=== PATIENT | male | born 1950 | race Caucasian/White ===

== ENCOUNTER → 2019-10-30 11:56 | Outpatient (CLI) | payer MEDICARE, OTHER, SELFPAY ==
[2019-10-31 21:09] LABS: COVID19 Sendout Not Detected (Not Detect)
== END ==
PROVIDERS: Visit Provider Physician Assistant
DX: Z11.59 Encounter for screening for other viral diseases (principal)
CPT/HCPCS: 87635

== ENCOUNTER 2019-11-01 06:03 | Day surgery (SDC) | payer MEDICARE, OTHER, SELFPAY ==
[2019-10-23 13:50] VITALS: BMI 19.5
[2019-11-01] VITALS (23 sets, daily range): BP systolic 100–212; BP diastolic 69–155; PULSE 63–90; RESP 12–21; TEMP 35.9–37.1; O2SAT 91–97; BMI 18.8
--- NOTE | 2019-11-01 | DI.RAD.S_ITS ---
PROCEDURE: XR HIP W PEL IF DONE RT 2V INDICATIONS: OR RIGHT HIP TECHNIQUE: AP pelvis and lateral view of the right hip acquired. COMPARISON: [facility] [place], [place], XR PELVIS WITH BILATERAL LATERAL HIPS, 09/03/2019, 15:35. FINDINGS: Bones: Patient is status post right hip arthroplasty, with hardware components in expected positions. The hip joint appears congruent. The visualized bony structures appear intact. Note is made of prior left hip arthroplasty. Soft tissues: Overlying postoperative changes are noted. No suspicious soft tissue densities. IMPRESSION: Right hip arthroplasty with prosthesis in expected alignment. Dictated by: Maryjo Oneal M.D. on 11/01/2019 at 11:02 Approved by: Maryjo Oneal M.D. on 11/01/2019 at 11:03
--- NOTE | 2019-11-01 | DI.RAD.S_ITS ---
PROCEDURE: XR HIP W PEL IF DONE RT 2V INDICATIONS: POST-OP RIGHT JOSSY TECHNIQUE: AP pelvis with lateral view(s) of the right hip(s). COMPARISON: [facility], , XR HIP W PEL IF DONE RT 2V, 11/01/2019, 10:02. FINDINGS: Bones: Expected postoperative appearance of right hip arthroplasty. There is expected postoperative alignment. No fracture. Overlying soft tissue changes and gas. Lower lumbar spondylosis and facet disease. Left hip arthroplasty also present. Scattered vascular calcifications. Soft tissues: The visualized bowel gas pattern is normal. No suspicious soft tissue calcifications. IMPRESSION: Expected postoperative appearance Dictated by: Reza Remy M.D. on 11/01/2019 at 11:35 Approved by: Reza Remy M.D. on 11/01/2019 at 11:37
[2019-11-01] MEDS: VANCOMYCIN 1,000 MG/200 ML PIGGYBACK 200 MG IV (07:07)
[2019-11-01] MEDS: CELECOXIB 200 MG CAPSULE PO (07:07)
[2019-11-01] MEDS: LACTATED RINGERS 1,000 ML 42 ML IV ×2 (07:35→09:50)
--- NOTE | 2019-11-01 07:36 | SUR.OPER ---
Supine on padded [place] table with bilateral legs secured in padded positioning boots and suspended in positioning spars, operative leg in traction per surgeon. Head on one pillow. Arm on non-operative side secured on padded armboard <90 degrees abduction. Arm on operative side padded and resting across chest then secured with tape over sheet. Padded perineal post in place per surgeon.
--- NOTE | 2019-11-01 07:44 | PM.PREOP ---
Pre-operative Note Interval Note History & Physical reviewed/Exam performed by Physician: Yes Changes to H&P: No
--- NOTE | 2019-11-01 07:45 | P.OP_ITS ---
Operative Date/Time/Diagnoses Date of procedure: 11/01/19 Time of procedure: 07:45 Pre-op diagnosis: right hip AVN Post-op diagnosis: same Procedure & Clinicians Procedure: Right total hip arthroplasty anterior approach Same procedure as scheduled: Yes Indications: The patient has had progressively worsening right hip pain with radiographic changes consistent with arthritis. Non-operative management has failed and the patient has requested total hip replacement. The risks, benefits and alternatives to surgery were discussed with the patient prior to proceeding. Risks discussed included, but were not limited to, failure to relieve pain, leg length discrepancy, dislocation, stiffness, infection, nerve damage, deep venous thrombosis, pulmonary embolism, stroke, coma, heart attack, permanent paralysis and , as well as the potential need for eventual revision of the prosthetic. 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 Patient was carefully positioned in the supine position. Time-out was performed and antibiotics were given. Anesthesia was induced. She was positioned in the on the table in order to allow hyperextension of the hip. The right lower extremity was prepped and draped in a standard sterile fashion. An anterior right hip incision was made 1 fingerbreadth lateral to the anterior superior iliac spine and extended distally towards the greater trochanter. Dissection was carried out through skin and subcutaneous tissues. The skin and subcutaneous tissues were carefully injected with Marcaine. Superficial hemostasis was achieved. The fascia over the tensor fascia torrie was defined and incised with a knife. Two Allis clamps were used to grasp the fascia. Tensor fascia torrie was retracted laterally. A gelpi retractor was placed. Dissection was carried out down along the neck. The circumflex vessels were carefully identified and cauterized with the Aqua Mantis. There was good visualization of the femoral neck. A Cobra was placed superior to the neck and the gluteus fibers were carefully stripped from that superior aspect of the capsule. A 2nd retractor was placed along the inferior aspect of the neck. The rectus insertion along the capsule was partially released. A 3rd retractor that was then gently placed over the rim of the acetabulum under the rectus. Capsule was carefully incised and released from the intertrochanteric line circumferentially superior to the mid sagittal line and inferiorly to the mid sagittal line until the lesser trochanter was palpable. A tag stitch was placed both in the superior and inferior limb of the capsular insertion. Along the acetabulum capsule was also released up to the mid sagittal 12:00 position. A portion of the labrum was resected. A saw was used to perform an osteotomy at the level of the intertrochanteric line and the junction of the superior femoral neck leaving approximately 1 finger breath of residual inferior neck above the lesser trochanter. A 2nd cut was made along the femoral neck at the base of the head and a napkin ring of neck was removed. Corkscrew was placed in the femoral head and the head was removed without difficulty. Retractors were then repositioned around the acetabulum. Residual labrum was resected and additional osteophytes were removed. A reamer that was 4 mm below the templated size was placed by hand in the acetabulum and it was reamed to centralize the acetabulum. It was then reamed up to 2 under the templated size and fluoroscopy was brought in to confirm the position of the reaming and depth of reaming. I reamed 1 under the anticipated size. A trial cup was placed and noted that it was appropriately sized and fluoroscopy confirmed position and depth. The component was open and inserted without difficulty fluoroscopic imaging was used to confirm that the cup had been adequately seated and was well positioned. It was further stabilized with a single screw. Neutral poly liner was placed. The cup was tested and noted to be stable. Attention was then directed to the femur. The femur was gently hyperextended additional capsular release was performed as needed in order to allow adequate visualization of the proximal femur with elevation of the femur. Patient was placed in a hyperextended slightly adducted position with maximum external rotation. Box osteotome was used to check for any residual neck as well as sclerotic bone along the trochanter. [place] pepper was placed in the femur. Additional broaching was performed. Canal finder was used to determine the alignment of the canal and position. Size 1 broach was placed. The canal was then appropriately broached up to the templated size as long as there was adequate stability of the broach and serial advancement of the broach without excessive impingement. Specific attention was directed at avoiding varus attempting to direct the distal aspect of the broach more anteriorly and avoiding excessive anteversion. Trial reduction showed acceptable range of motion, good stability, no posterior impingement, sabianist of leg length and appropriate lateral shuck. I also hyperflexed the hip and checked that there was no impingement anteriorly and there was good stability with flexion, adduction and internal rotation. Marcaine and Exparel were injected. The stem was placed without difficulty. Repeat trial reduction and x-ray showed acceptable overall position, length, and no evidence of the femoral fracture. Final head was placed. Wound was meticulously irrigated with normal saline. The hip was reduced and additional Exparel and Marcaine were injected. The capsule was closed with interrupted nonabsorbable sutures. The fascia of the tensor was closed with interrupted and running Vicryl. No drain was placed. Any tensor fascia torrie muscle that appeared to be contused or injured which was a minimal amount was carefully resected. Capsule around the tensor was injected with Exparel and Marcaine. The skin was closed with barbed stitches for the subcutaneous tissue and skin. We also used surgical glue. The wound was dressed sterilely. Brief Betadine soak was also used and was meticulously irrigated with normal saline. Patient was transferred to recovery room in satisfactory condition. Complications: none Post-operative Condition: stable Disposition: Acute Care Plan for aftercare: The patient will be maintained on a standard total hip replacement protocol with weight bearing as tolerated and anterior hip precautions. The patient will receive Aspirin and sequential compression devices for DVT prophylaxis. The patient will be discharged home when safe for the home environment.
[2019-11-01] MEDS: CEFAZOLIN 2 GM/100 ML FROZ.PIGGY IV ×2 (07:51→15:47)
[2019-11-01] MEDS: BUPIVACAINE LIPOSOME 266 MG/20 ML VIAL INJ (08:31)
[2019-11-01] MEDS: BUPIVACAINE 0.25% W/ EPI 30 ML VIAL 60 ML INJ (08:31)
[2019-11-01] MEDS: TRANEXAMIC ACID 1,000 MG VIAL 1000 MG INJ ×2 (08:32→10:16)
--- NOTE | 2019-11-01 11:15 | SUR.PHASEI ---
Aquacell to hip R CDI, pt denies pain, ice pack on hip, Xrays completed, awaiting bed placement
[2019-11-01] MEDS: HYDRALAZINE 20 MG/ML VIAL 5 MG IV (11:33)
--- NOTE | 2019-11-01 11:39 | SUR.PHASEII ---
Anesthesia provider notified re escalating bp, orders received-
--- NOTE | 2019-11-01 12:01 | PC.NURSE ---
Day shift: Pt on AC unit at approx 1200 from PACU. He is A&Ox3. Agrees to not get OOB w/o help from staff. Laine is CDI. On 3L NC and RT notified. SCD's on. Oriented to room and call light. Call light in reach. On high fall risk protocol for now. Can feel touch BLE's but can't wiggle toes. Will continue to monitor. Denies pain or nausea.
[2019-11-01] MEDS: LACTATED RINGERS 1,000 ML 125 ML IV ×2 (12:21→22:06)
--- NOTE | 2019-11-01 13:31 | PC.NURSE ---
Notified RN of High BP, Retook BP on Left Side at 13:22
--- NOTE | 2019-11-01 13:36 | PC.NURSE ---
Day shift: Telephone order for consult to Hospitalist placed by this public relations writer per DR Obregon. Dr Sandy has been notified. Pt's last BP while asleep 161/104 w/ HR 70.
--- NOTE | 2019-11-01 14:30 | PT-IP ANOTE ---
Received PT orders and reviewed chart. Contacted pt for evaluation, but pt's BP had been high in the postoperative period. PT assessed BP at 190/117 HR 75. Hospitalist had already been consulted. PT will hold eval until pt stabilizes.
[2019-11-01] MEDS: IBUPROFEN 400 MG TABLET PO ×3 (14:31→22:00)
[2019-11-01] MEDS: GABAPENTIN 300 MG CAPSULE PO ×2 (14:31→21:57)
[2019-11-01] MEDS: ACETAMINOPHEN 325 MG TABLET 650 MG PO ×2 (14:32→21:56)
[2019-11-01] MEDS: OXYCODONE IR 5 MG TABLET PO (14:32)
[2019-11-01] MEDS: HYDROMORPHONE 0.5 MG INJ IV (14:43)
--- NOTE | 2019-11-01 14:43 | PC.NURSE ---
RN notified of High BP
[2019-11-01] MEDS: diphenhydrAMINE 50 MG/ML VIAL 25 MG IV (15:42)
[2019-11-01] MEDS: OXYCODONE/ACETAMINOPHEN 5/325 TABLET 1 TAB PO (16:28)
--- NOTE | 2019-11-01 20:08 | PM.CN ---
History of Present Illness Consult details Date Patient Seen: 11/01/19 Time Patient Seen: 20:09 Chief complaint: R Total Hip Arthroplasty/Anterior Approach *OPB* Reason for consult: Hypertensive urgency Requesting provider: Celena Obregon Narrative: Reilly Maldonado is a 69 y.o. status post right hip replacement today and with a past medical history of hypertension. The hospitalist service was consulted the patient developed hypertensive urgency with a high of 212/155 today after the surgery. He had issues with retaining urine, so he was straight cathed, at that point his blood dropped down to a systolic of the 150s and now it is 100/69. He states he is feeling better, but is quite lethargic. Meds Home Medications and Allergies Home Medications Medication Instructions Recorded Confirmed Type duloxetine 30 mg PO BID 10/24/19 11/01/19 History ferrous sulfate 325 mg PO BID 10/24/19 11/01/19 History gabapentin 300 mg PO TID 10/24/19 11/01/19 History hydrochlorothiazide 12.5 mg PO DAILY 10/24/19 11/01/19 History losartan 100 mg PO BEDTIME 10/24/19 11/01/19 History morphine 30 mg PO BEDTIME 10/24/19 11/01/19 History oxycodone-acetaminophen 2 tab PO TID 10/24/19 11/01/19 History pantoprazole 40 mg PO BID 10/24/19 11/01/19 History propranolol 20 mg PO DAILY 10/24/19 11/01/19 History simvastatin 20 mg PO DAILY 10/24/19 11/01/19 History Allergies Allergy/AdvReac Type Severity Reaction Status Date / Time hornet venom Allergy Severe Anaphylaxis Verified 11/01/19 06:51 Review of Systems Review of Systems ROS: Yes other (Very lethargic, s/p surgery today) Exam Vital Signs (past 8 hours): - 11/01/19 12:30 11/01/19 13:00 11/01/19 13:22 Temperature 97.3 F L 97.0 F L Pulse Rate 66 69 70 Respiratory Rate 16 16 Blood Pressure 137/84 155/104 H 161/104 H Pulse Oximetry 94 94 11/01/19 13:38 11/01/19 14:00 11/01/19 14:30 Temperature 97.2 F L Pulse Rate 71 65 74 Respiratory Rate 16 Blood Pressure 161/104 H 175/90 H 190/117 H Pulse Oximetry 97 11/01/19 15:00 11/01/19 15:49 11/01/19 16:23 Temperature 97.9 F Pulse Rate 77 90 84 Respiratory Rate 18 18 Blood Pressure 183/114 H 212/155 H 152/93 H Pulse Oximetry 95 96 95 11/01/19 19:27 Temperature 98.3 F Pulse Rate 82 Respiratory Rate 19 Blood Pressure 100/69 Pulse Oximetry 92 Oxygen Delivery Method Room Air Oxygen Flow Rate 2 Narrative Exam Narrative: Gen: Alert, oriented, thin and disheveled appearing 69 y.o. male, lethargic as he is s/p surgery today HEENT: normocephalic, atraumatic, conjunctiva clear, sclera non-icteric, oral mucosa pink and moist Neck: supple, full ROM, no JVD, trachea is midline Resp: Lungs CTA, non-labored breathing CV: RRR, no murmur or rubs Abd: soft, non-tender, normoactive BTs Skin: no lesions or rashes, dry and intact Neuro: Alert and oriented X 4 w/no focal deficits. Speech clear and coherent. Extremities: moves all 4 extremities, is ambulatory, negative Charly?s sign Psyche: normal mood and affect. Assessment & Plan Assessment & Plan narrative: Reilly Maldonado, POD 0 left hip arthroscopy developed hypertension after leaving the PACU and the hospitalist service has been requested to consult. Hypertensive urgency, resolved -Resume his oral losartan and propranolol when the patient's bp is greater than a systolic of 120 -Continue NS at 125 ml/hour Thank you for the opportunity to evaluate this patient. Since his blood pressure has resolved, we will sign off, but please feel free to re-consult if the patient has any medical concerns. COVID-19 COVID-19 status: Negative Result date/Date tested (Pos, Neg/Pending): 10/27/19
[2019-11-01] MEDS: DOCUSATE 100 MG CAPSULE PO (21:56)
[2019-11-01] MEDS: ASPIRIN EC 81 MG TABLET PO (21:56)
[2019-11-01] MEDS: LOSARTAN 50 MG TABLET 100 MG PO (21:56)
[2019-11-01] MEDS: DULOXETINE 30 MG CAPSULE PO (21:57)
[2019-11-01] MEDS: PANTOPRAZOLE 40 MG TABLET PO (21:57)
[2019-11-01] MEDS: FERROUS SULFATE 325 MG TABLET PO (21:57)
--- NOTE | 2019-11-01 23:55 | PC.NURSE ---
COTTON GRADER note: attempted to reposition. Patient was in a crooked position. Patient refused. He said he was comfortable.
[2019-11-02] MEDS: CEFAZOLIN 2 GM/100 ML FROZ.PIGGY IV
[2019-11-02 00:08] VITALS: BP 135/92; PULSE 71; RESP 18; O2SAT 95
[2019-11-02] MEDS: IBUPROFEN 400 MG TABLET PO ×4 (01:21→12:33)
--- NOTE | 2019-11-02 01:50 | PC.NURSE ---
0135 Pt. was not able to void, bladder scanned 380 cc noted. In & Out cath. done noted 425 cc of francisco urine. Tolerated procedure well, patient still hypertensive last B/P 153/95, HR 74. Medicated with scheduled Ibuprofen, Will cont. POC & monitor.
[2019-11-02 01:53] VITALS: BP 153/95; PULSE 74; O2SAT 96
[2019-11-02 05:00] VITALS: BP 165/77; PULSE 74; RESP 18; TEMP 36.5; O2SAT 96
[2019-11-02 05:49] LABS: Hematocrit 34.4 % (41-53); Hemoglobin 11.3 g/dL (13.5-17.5)
[2019-11-02 07:40] VITALS: BP 157/98; PULSE 90; RESP 18; TEMP 36.4; O2SAT 94
[2019-11-02] MEDS: DULOXETINE 30 MG CAPSULE PO (08:23)
[2019-11-02] MEDS: PANTOPRAZOLE 40 MG TABLET PO (08:23)
[2019-11-02] MEDS: ACETAMINOPHEN 325 MG TABLET 650 MG PO ×2 (08:23→14:06)
[2019-11-02] MEDS: DOCUSATE 100 MG CAPSULE PO (08:23)
[2019-11-02] MEDS: ASPIRIN EC 81 MG TABLET PO (08:23)
[2019-11-02] MEDS: FERROUS SULFATE 325 MG TABLET PO (08:23)
[2019-11-02] MEDS: GABAPENTIN 300 MG CAPSULE PO ×2 (08:23→14:06)
[2019-11-02] MEDS: OXYCODONE IR 5 MG TABLET PO (08:23)
[2019-11-02] MEDS: hydroCHLOROthiazide 12.5 MG CAPSULE PO (08:23)
--- NOTE | 2019-11-02 08:47 | PM.PN.1 ---
Subjective Subjective Date Patient Seen: 11/02/19 Time Patient Seen: 08:47 Interval history: Reilly notes that he is doing reasonably well. He has chronic pain and takes chronic pain medications his pain is actually slightly improved in comparison to preoperatively he describes an ache in his right leg. Exam Vital Signs (past 8 hours): - 11/02/19 01:53 11/02/19 05:00 Temperature 97.7 F Pulse Rate 74 74 Respiratory Rate 18 Blood Pressure 153/95 H 165/77 H Pulse Oximetry 96 96 Oxygen Delivery Method Nasal Cannula Oxygen Flow Rate 1 Narrative Exam Narrative: He is alert he is oriented he has soft calfs bilaterally mild pain with gentle range of motion in the right hip he is able to do an active straight leg raise and to flex his hip. Objective Labs Result Diagrams: 11/02/19 04:55 Labs: Laboratory Results - last 24 hr 11/02/19 04:55 Hgb 11.3 L Hct 34.4 L Assessment & Plan Assessment & Plan narrative: Improving status post right total hip arthroplasty. Plan is to discharge him to home after he is up with physical therapy. He is going to resume his baseline narcotics and I have given him some additional 10 mg oxycodone that he can use for breakthrough pain. He needs to take baby aspirin to decrease his risks for a blood clot and begin outpatient physical therapy.
[2019-11-02] MEDS: PROPRANOLOL 10 MG TABLET 20 MG PO (10:08)
[2019-11-02] MEDS: SIMVASTATIN 20 MG TABLET PO (10:08)
[2019-11-02] MEDS: OXYCODONE IR 10 MG TABLET PO ×2 (10:11→14:05)
--- NOTE | 2019-11-02 11:17 | PT.IIE ---
Current Diagnoses Unilateral primary osteoarthritis, right hip (11/01/19) Idiopathic aseptic necrosis of right femur (11/01/19) Surgery Performed Operation Date: 11/01/19 07:45 Actual Procedures p Total Hip Arthroplasty/Anterior Approach(Right) - Celena Obregon MD Surgical History (Last Updated 11/01/19 @ 22:48 by REGGIE Stockton) History of colon resection (Acute) History of right cataract extraction (Acute) History of total left hip arthroplasty (Acute) Hx of hernia repair (Acute) Hx of shoulder surgery (Acute) S/P cervical spinal fusion (Acute) Status post dissection of cervical lymph nodes (Acute) Medical History (Last Reviewed 11/01/19 @ 22:43 by REGGIE Stockton) Arthritis (Acute) COPD (chronic obstructive pulmonary disease) (Acute) GERD (gastroesophageal reflux disease) (Acute) HTN (hypertension) (Acute) Liver cancer (Acute) Memory deficit (Acute) Mouth cancer (Acute) Physical Therapy Inpatient Evaluation/Re-Eval M1 PT/OT-IP Prior Functional Status Start: 11/01/19 12:39 Freq: NEEDED Status: Active Protocol: Document 11/02/19 10:07 (Rec: 11/02/19 11:16 [email or web address]) Medical Review Prior Functional Status Medical History Reviewed Yes Communication no deficits noted besides [place] Mobility and Gait Pt has been using kazakh crutch/ FWW for mobility at all time. Pt had multiple L hip sx which affects his mobility. He stated he has been having a hard time WB on Rhip. was always SBA for him and provided ROLL CUTTING OPERATOR to get up from chair sometimes. Pt had 6-7 falls within the past year . Activities of Daily Living and IADL's Pt stated assisted him in IADLs such as cooking, house cleaning, grocery shopping, laundry and driving. Pt was able to be mod I/ SBA for toileting, showering. Prior Functional Level (Other details) pt uses urinal at night and he also sleeps in a recliner. Social History Household Members spouse Living Arrangements House Number of Floors (Floors) One Floor Number of Stairs To Enter/Railing? 3STE with B rails, SBA from usually. Home Environment Standard Height Toilet,Walk in Shower,Tub/Shower Home Equipment Front Wheel Walker,Crutches, Shower Seat with Backrest,Hand Held Shower,Book Author,Grab Bars In Shower Employment Status Unemployed Additional Social History Comment Pt lives with his in [place] who recently retired as a teacher. is active and independent and able to assist at all times. He states he has friends/ neighbors to assist if needed. 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 M2 PT-IP Current Condition Start: 11/01/19 12:39 Freq: NEEDED Status: Active Protocol: Document 11/02/19 10:07 (Rec: 11/02/19 11:16 [email or web address]) Physical Therapy Current Condition Current Condition Evaluation Date 11/02/19 Treatment Diagnosis R JOSSY (anterior approach), difficulty in walking, generalized weakness Onset Date 11/01/19 Precautions Anterior Hip Precautions No Hip Extension,No Hip External Rotation Weight Bearing Status Weight Bearing Status Weight Bear as Tolerated M3 PT-IP Subjective Start: 11/01/19 12:39 Freq: NEEDED Status: Active Protocol: Document 11/02/19 10:07 (Rec: 11/02/19 11:16 [email or web address]) Subjective Physical Therapy Visit Type Type Initial Evaluation Visit Start Time 09:25 Visit Stop Time 09:50 Total Visit Minutes 25 Notes patient developed hypertensive urgency with a high of 212/ 155 today after the surgery but it's controlled now. Number of EDUCATION TECHNICIAN Visits 0 Physical Therapy Visit Comments Patient Comments Im feeling pretty good now Patient Goals To be mobile again and go home with Therapy Pain Assessment Pain When Pain Assessed During Mobility Pain Present Pain Present Pain Reported Location right hip Intensity 5 Description Aching,Acute Pain Management Techniques Timing of Activity with Medications M4 PT-IP Mobility and Gait Start: 11/01/19 12:39 Freq: NEEDED Status: Active Protocol: Document 11/02/19 10:07 (Rec: 11/02/19 11:16 [email or web address]) PT-Bed Mobility Assessment Supine to Sit Supine to Sit Standby Assistance,Head of Bed Elevated Scooting Scooting to Edge of Bed Standby Assistance PT-Transfer Assessment Sit to and From Stand Sit to and from Stand Contact Guard Assistance Equipment Transfer Assistive Device Gait Belt,Front Wheeled Walker Orthotic/Prosthetic Devices or Brace: No Transfers Transfer Destination Bed,Chair Transfer Technique Stand Step Pivot Transfer Ability Level of Assist Contact Guard Assistance,Use of Upper Extremities Comments Mobility Comments Pt was in bed with elevated HOB upon PT arrival. BP at 127 /90 at rest with no discomfort noted. Pt appeared to be AxO x3 with K[place]AK. Reviewed post op precautions with pt. Pt then proceed to use UEs unweight himself and pivot his LEs one at a time to slowly sit at EOB on R side from elevated HOB since pt stated he sleeps in a recliner usually. Pt was able to complete scooting to EOB with SBA. He then stood up with FWW CGA and able to complete lateral weight shift. Pt stated he felt stable and then started ambulating towards hallway with CGA. Pt has an antalgic gait with flexed trunk and lateral lean towards L and mostly WB on forefoot. He described that his normal gait. Pt initially started with step to pattern then progressed to min. step over pattern. He completed approx 140 ft and no signs of LOB noted. Pt went back to his room and able to stand step pivot and transfer himself to chair with CGA and used of UEs on armrests to descend. Pt rest in chair comfortably with call light placed within reach. BP at 154/99 HR 81. Gait Assessment Gait Gait Assistance Required: Independent Distance (Feet) 140 Able to Maintain Weight Bearing Status Yes During Gait Assistive Devices Assistive Device Gait Belt,Front Wheeled Walker Orthotic/Prosthetic Devices or Brace: No Gait Deviations General Gait Pattern Antalgic,Decreased Stride Length,Decreased Feet Clearance,Flexed Trunk,Lateral Trunk Lean,Step-to Gait Factors Limiting Gait Function Factors Limiting Gait Function Decreased Activity Tolerance, Decreased Strength,Limited Range of Motion,Pain,Poor Balance Comments Gait Comments see mobility comments. Stair Climbing Assessment Comments Stair Climbing Comments did not assess d/t pain and fatigue. PT-Balance Assessment Sitting Balance and Reactions Static Sitting Balance Ability Normal Dynamic Sitting Balance Ability Normal Standing Balance and Reactions Static Standing Balance Ability Good Dynamic Standing Balance Ability Fair Device Used FWW M5 PT-IP Objective Assessments Start: 11/01/19 12:39 Freq: NEEDED Status: Active Protocol: Document 11/02/19 10:07 (Rec: 11/02/19 11:16 [email or web address]) Orientation Orientation/Cognition Level of Alertness Alert Orientation Name,Age,Birthday,Month,Date, Year,Day of Week,Place, Situation Language Function Ability No Deficits Noted,Hard of Hearing Safety Awareness Understands Safety Issues Memory Description No Deficits Noted Gross Range of Motion Upper Extremity ROM Assessment Within Functional Limits Lower Extremity ROM Assessment Right Impaired Strength Upper Extremity Strength Assessment Within Functional Limits Lower Extremity Strength Assessment Right Impaired Hip 3+/5 Knee 4-/5 Ankle 4/5 Coordination Assessment Gross Coordination Gross Coordination WNL Sensation Assessment Sensation Gross Sensation WNL Muscle Tone Muscle Tone WNL Yes M6 PT-IP Treatment Start: 11/01/19 12:39 Freq: NEEDED Status: Active Protocol: Document 11/02/19 10:07 (Rec: 11/02/19 11:16 [email or web address]) Physical Therapy Treatment Education Education Provided Precautions,Weight Bearing Status,Post-Op Packet,Safety M7 PT-IP Assessment and Plan Start: 11/01/19 12:39 Freq: NEEDED Status: Active Protocol: Document 11/02/19 10:07 (Rec: 11/02/19 11:16 [email or web address]) PT Summary Assessment and Plan Potential Rehabilitation Potential Excellent Status of Condition at Evaluation Stable Summary Impairments Pain,ROM,Strength,Balance,Bed Mobility,Transfers,Gait, Activity Tolerance Assessment Summary This is a low complexity evaluation for this 69yo male s/p POD R JOSSY with anterior approach. Although pt needed assistance for most IADLs from his , pt did fairly well for mobility assessment who was able to get OOB, transfer and amb with SBA/CGA safely and steadily. Pt does have hx of falls and metastasized cancer which will be a good ideal to conduct a CG training session with this afternoon. Pt will ahve to complete steps climbing first prior to d/c Goals Bed Mobility Goal Standby Assistance Transfer Goal Standby Assistance Gait Goal Standby Assistance Gait Distance 300 Other Goals complete 3STE with B rails. Days to Meet Goals 1 Frequency of Treatment Frequency Of Treatment Twice a Day Treatment Plan Physical Therapy Treatment Plan Bed Mobility Training,Transfer Training,Gait Training, Therapeutic Exercise,Balance Retraining,Post Op Education, Discharge Planning,Hot or Cold Pack,Neuromuscular Re-ed Other Recommendations and Next Treatment 3 RENATA w B rails Focus reviwe precautions Recommendations To Nursing Amount of Assist Needed 1 Person Assist Discharge Recommendations PT Discharge Recommendations Home with Assistance, Outpatient PT Equipment Needed for Home Before BSC, raise toilet seat Discharge Transportation Needs at Discharge Private Vehicle
[2019-11-02 11:32] VITALS: PULSE 84; RESP 18; O2SAT 95
[2019-11-02 12:00] VITALS: BP 156/96; PULSE 84; RESP 14; TEMP 36.4; O2SAT 96
--- NOTE | 2019-11-02 12:18 | PC.NURSE ---
Day shift: Per conversation w/ Dr Obregon just now, OK to finalize med list and hand write on discharge that Pt need to take 81mg aspirin daily.
--- NOTE | 2019-11-02 12:51 | CM.DANOTE ---
Addendum entered by Maame Ballesteros LPN 11/02/19 13:05: Hospitalist team was consulted: specifically for hypetensive emergency due to post op urinary retentions. Lo Remy signed off at that point as she stated this particular issue seemed to be resolved. Addendum entered by Maame Ballesteros LPN 11/02/19 12:54: Met with pt now after conferring with MART adams the POC for today. Introduced self and role. Pt is a 69 year old male who admitted yesterday for a scheduled R JOSSY/anterior approach: Surgeon: Dr. Lucille Obregon Payer: Medicare and [employer]. PCP: Vicike Sloan. Pt carries a multitude of medical combidities and at baseline is cared for at home by his Lynn. PCP: Vickie Sloan PT Janusz did see pt this morning for first evaluation. A session of caregiver training is planned and Lynn has been updated by pt and is on her way here from their home in [place]. Pt says he very much plans to be going home today. P: dc planning team will be following. Admission status: SDC: confirmed by UR MART Donald Original Note: Discharge Planning/Care Management DCP: assessment: case received, EMR reviewed. Discussed in Team Rounds. Dr. Obregon did put a d/c to home order in early this morning when cleared by PT. Advanced directive, confirm from FAMILY Start: 11/01/19 12:30 Freq: Q24H Status: Active Protocol: Document 11/01/19 12:34 YAD (Rec: 11/01/19 12:49 YAD [id number]) Co-Signed By Margarita Stapleton RN 11/01/19 12:34 Advance Directive, confirm on record Time 12:46 Person contacted patient Copy received No CM Discharge Assessment Start: 11/02/19 12:48 Freq: Status: Active Protocol: Document 11/02/19 12:48 ITV (Rec: 11/02/19 12:51 ITV [id number]) Discharge Planning Assessment Advance Directives? Yes History Provided By Patient,Medical Record Has Patient been admitted in last 30 No days? Prior Living Arrangements House Household Members spouse Comment spouse is Lynn: corrected phone number is: [phone]. Pt and Lynn reside at the [place] address. [address] address is very old. Admission Counselors are alerted to need to update face sheet info via OUTLOOK email, as per protocol. Independent with ADL's No Is patient alert and oriented? Yes Review Status In Process Pre-Anesthesia Assessment Start: 10/23/19 13:50 Freq: Status: Active Protocol: Document 10/23/19 13:50 CAB (Rec: 10/23/19 14:23 CAB [id number]) Pre-Anesthesia Assessment PAC Comment 10/24/19- called, reviewed medications. Patient Information Reviewed Via On-site Review Assessment Completed With Patient Specialist Seen Government Affairs Researcher Height 175.26 cm Weight 59.874 kg Body Mass Index (BMI) 19.5 Hearing Ability Hard of Hearing Visual Assist Glasses Dentition Type Edentulous Comment Does not wear his dentures due to mouth pain Hx Anesthesia Reactions No Hx Family Anesthesia Reaction No Hx Malignant Hyperthermia No Hx Blood Transfusions Yes: r/t liver cancer, hemorrhage Hx Blood Transfusion Reaction No Anesthesia Review Requested No alcohol intake former Alcohol Intake Frequency Other: Quit 2018 Smoking Status Former smoker how long ago did patient quit smoking Quit 2018 Substance Use Type marijuana Comment Edible marijuana, does not smoke Pain Present Pain Reported Musculoskeletal Symptoms Amputation,Back Pain, Difficulty Walking,Joint Pain, Neck Pain,Numbness,Tingling History of Falling (Recent or History of Yes ) Patient is completely paralyzed or No completely immobile Prosthesis or Orthotic Device Front Wheel Walker,Crutches Mental Status Oriented to own ability Is patient on oxygen? No Does patient have AYALA/SOB Yes Hx Sleep Apnea No Hx SOB Yes Anti-Coagulant Therapy No Has a Traffic Operator No Cardiac Testing No Hx Pacemaker/ICD No Pacemaker Rep Required? No Cardiac Clearance Received Not Applicable Diet Type At Home Regular dysphagia Yes: With solids Gastrointestinal Symptoms Reflux Bladder Pattern Frequency,Nocturia Urinary Catheter Present No Hx Urinary Self Catheterization No Diabetes No Presence of External or Internal Medical Yes: Left hip prosthesis, neck Devices fusion Have you had any close contact with No someone diagnosed with COVID-19? Marital Status Lives With spouse Prior Living Arrangements House Support System Spouse Does the Patient Have Assistance After Yes Surgery Patient Discharge Plan Description Return Home Comment Pt advised overnight length of stay per surgeon Feels Safe in Current Environment Yes Been Physically Hurt or Threatened By a No Person in Current Environment Do you have thoughts of harming yourself None or others? Are you currently considering suicide? No Do you have a plan to hurt yourself or No Plan others? Do You Have Any Spiritual Beliefs That No May Affect Your HC Choices? Do You Have Any Cultural Practices That No May Affect Your HC Choices? Comment [place] Who Can We Speak to About Patient's Care Family, friends Identifying Code for Release of Patient [place] to issue Information Health Care Proxy/Next of Kin Lynn () Health Care Proxy Emergency Contact Name Lynn () Emergency Contact PAC Instructions Durable medical equipment, Medications to take/avoid, Nasal antibiotic,No ETOH/ petroleum product on skin DOS, NPO,Pre-surgical wash,Sturdy shoes/comfortable clothes,Do not bring valuables and remove jewelry
--- NOTE | 2019-11-02 14:28 | PT.IPTN ---
Current Diagnoses Unilateral primary osteoarthritis, right hip (11/01/19) Idiopathic aseptic necrosis of right femur (11/01/19) Surgery Performed Operation Date: 11/01/19 07:45 Actual Procedures p Total Hip Arthroplasty/Anterior Approach(Right) - Celena Obregon MD Physical Therapy Treatment Note M2 PT-IP Current Condition Start: 11/01/19 12:39 Freq: NEEDED Status: Active Protocol: Document 11/02/19 10:07 HH (Rec: 11/02/19 11:16 HH [id number]) Physical Therapy Current Condition Current Condition Evaluation Date 11/02/19 Treatment Diagnosis R JOSSY (anterior approach), difficulty in walking, generalized weakness Onset Date 11/01/19 Precautions Anterior Hip Precautions No Hip Extension,No Hip External Rotation Weight Bearing Status Weight Bearing Status Weight Bear as Tolerated M3 PT-IP Subjective Start: 11/01/19 12:39 Freq: NEEDED Status: Active Protocol: Document 11/02/19 13:45 KS (Rec: 11/02/19 15:16 KS [email or web address]) Subjective Physical Therapy Visit Type Type Treatment Note Visit Start Time 13:45 Visit Stop Time 14:28 Total Visit Minutes 43 Number of FISH PROCESSOR Visits 1 Physical Therapy Visit Comments Patient Comments Pt agreeable to work w/ therapy. Pts present for caregiver training. M4 PT-IP Mobility and Gait Start: 11/01/19 12:39 Freq: NEEDED Status: Active Protocol: Document 11/02/19 13:45 KS (Rec: 11/02/19 15:16 KS [email or web address]) PT-Bed Mobility Assessment Supine to Sit Supine to Sit Standby Assistance,Head of Bed Elevated Sit to Supine Sit to Supine Standby Assistance,Head of Bed Elevated Scooting Scooting to Edge of Bed Standby Assistance PT-Transfer Assessment Sit to and From Stand Sit to and from Stand Contact Guard Assistance Equipment Transfer Assistive Device Gait Belt,Front Wheeled Walker Orthotic/Prosthetic Devices or Brace: No Transfers Transfer Destination Bed,Wheelchair Transfer Technique pt ambulated w/ FWW Transfer Ability Level of Assist Contact Guard Assistance,Use of Upper Extremities Comments Mobility Comments Pt in bed w/ HOB elevated upon arrival from therapy and able to recall precautions. Pt SBA for sup<>sit w/ HOB elevated and used LLE to assist RLE out of bed. Pts BP upon standing 153/118. Pt instructed to sit, BP assessed 5 min later standin/95. Okayed by RN to continue PT. Pt then ambulated to w/c SBA for sit<> stand and ambulation w/ FWW. W /c transport to stairs for energy conservation. Pt ascended/descended 3 steps w/ R rail and CGA provided safely by . Min cues for sequencing. Pt returned to w/c SBA and transported back to room. Pt ambulated from w/c to bed ~15 ft and returned to sup in bed SBA. Pts BP after treatment 140/91. Pt and state they feel safe to perform stairs and ambulate at home. Pt left in room w/ all needs in reach. Gait Assessment Gait Gait Assistance Required: Standby Assistance Distance (Feet) 40 Able to Maintain Weight Bearing Status Yes During Gait Assistive Devices Assistive Device Gait Belt,Front Wheeled Walker Orthotic/Prosthetic Devices or Brace: No Gait Deviations General Gait Pattern Antalgic,Decreased Stride Length,Decreased Feet Clearance,Flexed Trunk,Lateral Trunk Lean,Step-to Gait Factors Limiting Gait Function Factors Limiting Gait Function Decreased Activity Tolerance, Decreased Strength,Limited Range of Motion,Pain,Poor Balance Comments Gait Comments see mobility comments. Stair Climbing Assessment Evaluation Level of Assist On Stairs Contact Guard Assistance,1 Person Assistance Devices Stair Climbing Assistive Devices Right Railing Technique/Endurance Stair Climbing Direction Ascend and Descend Stair Climbing Technique Step to Step Number of Steps Climbed 3 Stair Climbing Set # Repetitions (reps) 1 Comments Stair Climbing Comments Pt ascended/descened 3 steps w / CGA and cues provided by pts . Pt used R rail and step to step pattern. Pt and feel safe to perform steps at home. PT-Balance Assessment Sitting Balance and Reactions Static Sitting Balance Ability Normal Dynamic Sitting Balance Ability Normal Standing Balance and Reactions Static Standing Balance Ability Good Dynamic Standing Balance Ability Fair Device Used FWW M5 PT-IP Objective Assessments Start: 11/01/19 12:39 Freq: NEEDED Status: Active Protocol: Document 11/02/19 10:07 (Rec: 11/02/19 11:16 [email or web address]) Orientation Orientation/Cognition Level of Alertness Alert Orientation Name,Age,Birthday,Month,Date, Year,Day of Week,Place, Situation Language Function Ability No Deficits Noted,Hard of Hearing Safety Awareness Understands Safety Issues Memory Description No Deficits Noted Gross Range of Motion Upper Extremity ROM Assessment Within Functional Limits Lower Extremity ROM Assessment Right Impaired Strength Upper Extremity Strength Assessment Within Functional Limits Lower Extremity Strength Assessment Right Impaired Hip 3+/5 Knee 4-/5 Ankle 4/5 Coordination Assessment Gross Coordination Gross Coordination WNL Sensation Assessment Sensation Gross Sensation WNL Muscle Tone Muscle Tone WNL Yes M6 PT-IP Treatment Start: 11/01/19 12:39 Freq: NEEDED Status: Active Protocol: Document 11/02/19 13:45 KS (Rec: 11/02/19 15:16 KS [email or web address]) Physical Therapy Treatment Education Education Provided Precautions,Weight Bearing Status,Post-Op Packet,Safety M7 PT-IP Assessment and Plan Start: 11/01/19 12:39 Freq: NEEDED Status: Active Protocol: Document 11/02/19 13:45 KS (Rec: 11/02/19 15:16 KS [email or web address]) PT Summary Assessment and Plan Potential Rehabilitation Potential Excellent Status of Condition at Evaluation Stable Summary Impairments Pain,ROM,Strength,Balance,Bed Mobility,Transfers,Gait, Activity Tolerance Progress Towards Goals Progressing Toward Goals Assessment Summary Pt SBA for bed mobility, SBA to CGA for transfers, ambulation, and stairs. Completed caregiver training w / pts who was able to safely and correctly provide cues and assist throughout treatment. Pts BP remains high , but 140/91 post treatment. Pt demonstrated good adherence to precautions and is able to self assist RLE w/ LLE. Pt would benefit from outpatient rehab to improve strength, balance, and gait. Goals Bed Mobility Goal Standby Assistance Transfer Goal Standby Assistance Gait Goal Standby Assistance Gait Distance 300 Other Goals complete 3STE with B rails. Days to Meet Goals 1 Frequency of Treatment Frequency Of Treatment Twice a Day Treatment Plan Physical Therapy Treatment Plan Bed Mobility Training,Transfer Training,Gait Training, Therapeutic Exercise,Balance Retraining,Post Op Education, Discharge Planning,Hot or Cold Pack,Neuromuscular Re-ed Other Recommendations and Next Treatment 3 RENATA w B rails Focus reviwe precautions Recommendations To Nursing Amount of Assist Needed 1 Person Assist Discharge Recommendations PT Discharge Recommendations Home with Assistance, Outpatient PT Equipment Needed for Home Before BSC, raise toilet seat Discharge Transportation Needs at Discharge Private Vehicle
--- NOTE | 2019-11-02 15:35 | PC.NURSE ---
Discharge Note Patient A&O, VSS, no complaints of pain/discomfort. Discharge instructions/packet given to patient by day shift RN. PIV removed by day shift RN. Patient taken down via wheelchair by float nurse accompanied by and personal belongings.
--- NOTE | 2019-11-02 15:42 | PC.NURSE ---
Pt sitting on side of bed fully dressed with spouse present anticipating discharge to home. Pt denies need for pain medications prior to discharge. Heplock to left wrist removed intact. Pt is able to transfer self from bed to wheelchair. All personal belongings accounted for. Pt and pt's spouse were provided with discharge information in written and verbal format. Prescription for oxycodone provided. Questions answered as appropriate. Pt left hospital in stable condition with this commercial loan underwriter as escort via wheelchair to private vehicle. Spouse behind the wheel.
== END 2019-11-02 15:30 | disposition home or self-care (01) ==
LOC: OR 06:08 → AC 10:22
PROVIDERS: PCP Internal Medicine; Referring Provider Internal Medicine; Visit Provider Orthopaedic Surgery
PROC: (CPT 27130; principal; 2019-11-01 07:45)
DX: M16.11 Unilateral primary osteoarthritis, right hip (principal); M87.051 Idiopathic aseptic necrosis of right femur; J44.9 Chronic obstructive pulmonary disease, unspecified; I10 Essential (primary) hypertension; C22.9 Malignant neoplasm of liver, not specified as primary or secondary
CPT/HCPCS: 27130; 36415; 73502; 76000; 85014; 85018; 94762; 97116; 97161; 97530; C1776; C9290; J0171; J0360; J0690; J1100; J1170; J1200; J2250; J2274; J2405; J2704; J3010